=== PATIENT | male | born 1960 | race Caucasian/White ===

== ENCOUNTER 2017-07-10 07:17 | Day surgery (SDC) | payer BC ==
[~2017-07-10 07:17] MED LIST: ACETAMINOPHEN 1,000 MG/100 ML BTL IV ONE; CLINDAMYCIN 600MG/50ML PREMIX 600 MG/50 ML BAG IVPB ONE
[2017-07-10] MEDS ORDERED: MIDAZOLAM HCL 2MG/2ML VIAL IV ONE (07:18)
[2017-07-10] MEDS ORDERED: LIDOCAINE 2% MDV (20MG/ML) 20ML VIAL IV ONE (07:18)
[2017-07-10] MEDS ORDERED: FENTANYL PF 100MCG/2ML VIAL IV ONE (07:18)
[2017-07-10] MEDS ORDERED: KETOROLAC 30 MG/ML VIAL IVP ONE (07:18)
[2017-07-10] MEDS ORDERED: ROPIVACAINE HCL (NAROPIN) /PF 5MG/ML 20ML VIAL IV ONE (07:18)
[2017-07-10] MEDS ORDERED: SEVOFLURANE 250 ML INH ONE (07:18)
[2017-07-10] MEDS ORDERED: DEXAMETHASONE 4 MG/ML 1ML VIAL IVP ONE (07:18)
[2017-07-10] MEDS ORDERED: PROPOFOL 10 MG/ML VIAL IV ONE (07:18)
[2017-07-10] MEDS ORDERED: EPHEDRINE SULFATE 50 MG/ML ML IV ONE (07:18)
[2017-07-10] MEDS ORDERED: BUPIVACAINE 0.75% W/EPI MPF 30ML VIAL IVP ONE (07:18)
--- NOTE | 2017-07-11 13:32 | Operative Note ---
DATE OF SURGERY: 07/10/2017 Surgeon: Ford Hoffman DO PREOPERATIVE DIAGNOSIS: Reducible left inguinal hernia. POSTOPERATIVE DIAGNOSIS: Reducible left inguinal hernia, indirect. OPERATION: Open left inguinal herniorrhaphy with mesh. Indication: The patient is a 57-year-old male who presented to the clinic with pain and bulging in his left inguinal region. He clearly had a reducible hernia. We did discuss repair. Risks, benefits, and alternatives were discussed. His risks include bleeding, infection, acute or chronic pain, recurrence. He understood this fully. Thereafter, consent was signed and questions answered. PROCEDURE: He was taken to the operating room and placed in a supine position. General anesthesia was administered per the department of anesthesia. The patient's left inguinal region was shaved of hair and prepped and draped in the usual fashion. At this time, oblique region was anesthetized with a total of 5 mL of 0.25% Sensorcaine with epinephrine. The patient also had undergone a preoperative inguinal block per the department of anesthesia. A 4 cm oblique incision was made. This was carried down through the subcutaneous tissues to the aponeurosis of the external oblique. A thomas was made. This was enlarged through the superficial inguinal ring with Metzenbaum scissors. Care was taken not to injure the underlying ilioinguinal nerve or spermatic cord. At this time, superior and inferior flaps were developed and a Montgomery was placed on the spermatic cord. This was dissected free from the underlying transversalis fascia and retracted laterally with a Lynn drain. The floor was inspected and noted to be free of any direct herniation. At this time, cremasteric fibers were taken down. The patient had both a cord lipoma and as well as indirect hernia sac. High ligations of each were done. At this time, a left-sided ProGrip mesh was obtained. This was placed in the floor of the inguinal canal with excellent overlap of the pubic tubercle. Stitches went at the level of the pubic tubercle and internal oblique aponeurosis. The lateral triangle was protected with the lateral aspect of the mesh. At this time, the aponeurosis of the external oblique was closed over the cord with 2-0 Vicryl, the Paula layer was closed with 3-0 Vicryl, and skin was closed with 4-0 Vicryl. The patient was taken to the recovery room in satisfactory condition. FINDINGS ON SURGERY: Left inguinal hernia, indirect, with accompanying cord lipoma. CC: Dr. Laurel PALMER
== END 2017-07-10 10:13 | disposition home or self-care (01) ==
LOC: SUR 07:17
PROVIDERS: ATTEND Surgery
DX: K40.90 Unilateral inguinal hernia, without obstruction or gangrene, not specified as recurrent (principal); I10 Essential (primary) hypertension; E78.00 Pure hypercholesterolemia, unspecified; E03.9 Hypothyroidism, unspecified; E11.9 Type 2 diabetes mellitus without complications; Z79.84 Long term (current) use of oral hypoglycemic drugs
CPT/HCPCS: 49505; 00830; 64425; J2795; J3490; J1885